=== PATIENT | female | born 1970 | race African-American/Black ===

== ENCOUNTER → 2018-10-21 | Day surgery (SDC) | payer OTHER ==
--- NOTE | 2018-10-21 14:53 | ULT ---
ULTRASOUND GUIDED RIGHT BREAST BIOPSY: DATE: 10/21/2018. PROVIDED CLINICAL HISTORY: A 3 o'clock right breast mass. FINDINGS: Correlation was made with outside imaging dating 10/03/2018. Limited sonographic interrogation of th e 3 o'clock position above right breast in the region of previously described right breast mass for w hich biopsy was recommended is again demonstrated. Informed consent was obtained from the patient. The patient was placed on the sonography table in the supine position and the area overlying the 3 o' clock right breast lesion was prepped and draped in the usual sterile manner. Soft tissues were infi ltrates with 1% buffered Lidocaine. Utilizing contiguous sonographic guidance, a 14 gauge core biops y device was utilized to obtain 5 core samples from the lesion. Subsequently, continuous sonographic guidance was utilized to place a biopsy site marker adjacent to the mass. No immediate complication s. Post biopsy mammograms demonstrate appropriate clip deployment. IMPRESSION: Technically successful ultrasound-guided right breast biopsy. Please correlate with histology result s to follow through. POS: OFF
== END ==
LOC: BICULT 12:18
PROVIDERS: ATTEND Specialist
PROC: 0HBT3ZX Excision of Right Breast, Percutaneous Approach, Diagnostic (ICD-10-PCS; principal; 2018-10-21)
DX: D24.1 Benign neoplasm of right breast (principal)
CPT/HCPCS: 19083; 88305; 88341; 88342

== ENCOUNTER 2018-11-11 06:23 | Outpatient (CLI) | payer OTHER ==
[2018-11-11 14:01] LABS: #Eosinphils 0.1 thou/uL (0.0-0.7); #Lymphocytes 2.2 thou/uL (1.20-3.40); #Monocytes 0.4 thou/uL (0.11-0.59); #Neutrophils 3.1 thou/uL (1.40-6.50); %Basophils 0.7 % (0.0-1.0); %Eosinophils 1.8 % (0.0-10.0); %Lymphocytes 37.7 % (21.0-51.0); %Monocytes 6.6 % (0.0-10.0); %Neutrophils 53.3 % (42.0-75.0); Hemoglobin 12.9 g/dL (12.0-16.0); Mean Corpuscular HGB CONC 34.6 g/dL (32.0-36.0); Mean Corpuscular Hemoglobin 32.2 pg (27.0-31.0); Mean Corpuscular Volume 93.1 fL (78.0-98.0); Platelet Count 365 thou/uL (130-400); RBC Distribution Width 11.7 % (11.5-14.5); White Blood Cell (WBC) Count 5.9 thou/uL (4.8-10.8)
[2018-11-11 14:34] LABS: Anion Gap 10 mmol/L (10-20); BUN (Urea Nitrogen) 10 mg/dL (7.0-18.7); Calc. Creatinine Clearance 0 mL/min (70-130); Calcium 9.6 mg/dL (7.8-10.44); Carbon Dioxide 28 mmol/L (22-29); Chloride 103 mmol/L (98-107); Estimated GFR-MDRD 75; Glucose 74 mg/dL (70-105); Potassium 3.3 mmol/L (3.5-5.1); Sodium 138 mmol/L (136-145)
== END 2018-11-11 06:24 | disposition home or self-care (01) ==
LOC: LABBT 06:23
PROVIDERS: ATTEND Specialist
DX: Z01.812 Encounter for preprocedural laboratory examination (principal); N63.10 Unspecified lump in the right breast, unspecified quadrant
CPT/HCPCS: 80048; 85025

== ENCOUNTER 2018-11-16 08:07 | Day surgery (SDC) | payer OTHER ==
--- NOTE | 2018-11-10 08:12 | HP ---
HISTORY OF PRESENT ILLNESS: Avelina Rios is a 48-year-old female followed by Dr. Virk. She presented to my office with an abnormal mammogram and underwent ultrasound-guided biopsy to medial right breast, 10/21/2018, pathology revealing papillary hyperplastic lesion although no dysplasia is noted. Excision was recommended to assure there is no malignancy or premalignancy. We will plan ultrasound guided needle localization, outpatient under general anesthesia. We have reassured the patient that this is more likely benign. Risks and benefits were discussed and she consented. MEDICATIONS: 1. Bupropion daily. 2. Nexium daily. 3. Fluoxetine 20 mg a day. 4. Hydrochlorothiazide 12.5 mg a day. 5. Valacyclovir daily. 6. Montelukast sodium daily. PAST MEDICAL HISTORY: Elevated cholesterol, depression, diabetes, and hypertension. PAST SURGICAL HISTORY: Lap pineda, hernia repair, PD catheter placement, fistula. REVIEW OF SYSTEMS: Noncontributory. SOCIAL HISTORY: Tobacco, none. Alcohol, none. Drugs, none. PHYSICAL EXAMINATION: VITAL SIGNS: 150 pounds, 5 foot 4 inches, 116/75, 80, and 98.1 degrees. HEAD, EARS, EYES, NOSE, AND THROAT: Unremarkable. LUNGS: Clear to auscultation. CARDIAC: Regular rate and rhythm without murmur or gallop. ABDOMEN: Soft and nontender. EXTREMITIES: Unremarkable. Axilla without masses. Left breast without palpable masses. Right breast reveals a medial mass. When I initially saw her today post biopsy, there is some ecchymosis and bruising. I cannot feel the small mass in the medial right breast. ASSESSMENT AND PLAN: Right breast mass most likely benign, but we will plan wider excision to assure under general anesthesia after needle localization. She understands the risks and benefits, and consents. Job ID: [id number]
[2018-11-11 11:39] VITALS: BMI 25.0
[2018-11-16] MEDS ORDERED: CEFAZOLIN 2 GM/50 ML BAG ONE (10:38)
[2018-11-16] MEDS ORDERED: Ketorolac Tromethamine 30 MG/ML VIAL ONE (10:38)
[2018-11-16] MEDS ORDERED: Bupivacaine/Epinephrine 0.25% 30 ML VIAL ONE (10:56)
[2018-11-16] MEDS ORDERED: Bupivacaine HCl 0.5%/Epinephrine 1:200,000/PF 30 ml Vial ONE (10:56)
[2018-11-16] MEDS ORDERED: Lidocaine 2% PF 5 ML VIAL ONE (10:56)
[2018-11-16] MEDS ORDERED: Fentanyl 100 MCG/2 ML VIAL ONE ×3 (11:03→12:29)
--- NOTE | 2018-11-16 13:05 | EKG ---
Test Reason : PREOP Blood Pressure : / mmHG Vent. Rate : 055 BPM Atrial Rate : 055 BPM P-R Int : 154 ms QRS Dur : 086 ms QT Int : 418 ms P-R-T Axes : 046 005 028 degrees QTc Int : 399 ms Sinus bradycardia Nonspecific T wave abnormality Abnormal ECG No previous ECGs available Confirmed by DR. Abbie MEYER ([id number]) on 11/16/2018 1:05:12 PM Referred By: BONNIE Confirmed By:DR. Abbie MEYER
[2018-11-16] MEDS ORDERED: HYDROcodone/Acetaminophen 5/325 mg Tablet ONE (13:58)
--- NOTE | 2018-11-16 15:04 | MMO ---
PRE-PROCEDURE DIAGNOSIS: Right breast 3 o'clock papillary lesion. Surgical excision is recommended. PROCEDURE: Ultrasound-guided needle localization of right breast masses at the 3 o'clock position. ANESTHESIA: Buffered Lidocaine 1% 4 mL. SURGEON: Noam Iqbal M.D. COMPLICATIONS: None. TECHNIQUE: Prior to the procedure, the risk and benefits of needle localization of the right breast masses at th e 3 o'clock position was explained to the patient and she consented for the procedure. Ultrasound was used again to identify the masses at the 3 o'clock position of the right breast. Lido krysten was used to anesthetized the skin and soft tissue surrounding the masses. A 3 cm [place] needle was then placed through both the masses. Once the needle was through both masses , the wire was deployed. This was then secured to the patient, and she was sent to day surgery for a ventral surgical excision. A specimen radiograph was performed, showing a clip within the biopsy specimen. There was extremely dense breast parenchyma, and the lesions that were localized with ultrasound could not be definitely seen. IMPRESSION: Status post needle localization of right breast masses at the 3 o'clock position. POS: [facility]
[2018-11-16] MEDS ORDERED: Lidocaine 1% PF 5 ML VIAL ONE (15:12)
[2018-11-16] MEDS ORDERED: PROPOFOL 200 MG/20 ML VIAL ONE (15:12)
[2018-11-16] MEDS ORDERED: ePHEDrine/0.9% NaCl/PF SYRINGE 50 mg/10 ml ONE (15:12)
[2018-11-16] MEDS ORDERED: Dexamethasone 20 MG/5 ML VIAL ONE (15:12)
[2018-11-16] MEDS ORDERED: Ondansetron PF 4 MG/2 ML Vial ONE (15:12)
[2018-11-16] MEDS ORDERED: Succinylcholine Chloride 20 MG/ML 10 ml SYRINGE FS ONE (15:12)
--- NOTE | 2018-11-16 17:48 | OP ---
DATE OF PROCEDURE: 11/16/2018 PREOPERATIVE DIAGNOSIS: Right breast medial indeterminate lesion by previous biopsy, now needs wide local excision of two adjacent lesions. ANESTHESIA: General, local 0.5% Marcaine with epinephrine 30 mL with 2% Xylocaine 10 mL, total volume used. Previous biopsy revealed papillary hyperplastic lesion without dysplasia. DESCRIPTION OF PROCEDURE: The patient was taken to the operating room, where after ultrasound-guided needle localization of this indeterminate hyperplastic lesion, the medial right breast incision was made in the medial right breast transversely after area was prepared with ChloraPrep and draped in routine fashion under general anesthesia. The localizing wire was brought into the incision and the wide excision of the localized abnormality excised from surrounding tissue submitted to mammography, where specimen mammography assured retrieval and then specimen was submitted to Pathology. Hemostasis was gained with cautery. Subcutaneous tissue was approximated with 3-0 Monocryl, skin with subdermal 4-0 Monocryl, and Haliimaile glue applied. Local anesthetic infiltrated about the skin and subcu tissue and breast tissue about the biopsy site and in the biopsy cavity. The patient tolerated the procedure well. Job ID: [id number]
== END 2018-11-16 16:32 | disposition home or self-care (01) ==
LOC: CANPRESDC → SDC 08:07 → EEVIPCON 11:00 → SDC 16:32
PROVIDERS: ATTEND Specialist
PROC: 0HBT0ZZ Excision of Right Breast, Open Approach (ICD-10-PCS; principal; 2018-11-16)
DX: D24.1 Benign neoplasm of right breast (principal); E11.9 Type 2 diabetes mellitus without complications; F32.9 Major depressive disorder, single episode, unspecified; E78.00 Pure hypercholesterolemia, unspecified; I10 Essential (primary) hypertension; Z79.899 Other long term (current) drug therapy
CPT/HCPCS: 19285; 76098; 88307; 93005; 93010; 96374; J0131; J0670; J1100; J1885; J2001; J2405; J2704; J3010

== ENCOUNTER 2020-07-29 14:39 | Outpatient (CLI) | payer OTHER ==
--- NOTE | 2020-07-29 16:40 | MMO ---
Bilateral MAMMO Bilat Screen [facility]. CLINICAL HISTORY: Patient is 49 years old and is seen for screening. The patient has the following family history of breast cancer: maternal aunt, malignant (generic). The patient has no personal history of cancer. The patient has a history of right Ultrasound Guided Core Biopsy in 2019 - papilloma, right Lumpectomy in 2018 - papilloma, right Cyst Aspiration in August, - benign and left Cyst Aspiration in December, - benign. VIEWS: The views performed were: bilateral craniocaudal with tomosynthesis and bilateral mediolateral oblique with tomosynthesis. FILMS COMPARED: The present examination has been compared to prior imaging studies performed at [facility] on 10/03/2018, and at [facility] on 01/07/2016 and 01/12/2017. This study has been interpreted with the assistance of computer-aided detection. MAMMOGRAM FINDINGS: The breasts are extremely dense, which may lower the sensitivity of mammography. Benign calcifications are noted bilaterally. There are no suspicious masses, suspicious calcifications, or new areas of architectural distortion. IMPRESSION: THERE IS NO MAMMOGRAPHIC EVIDENCE OF MALIGNANCY. A ROUTINE FOLLOW-UP MAMMOGRAM IN 1 YEAR IS RECOMMENDED. THE RESULTS OF THIS EXAM WERE SENT TO THE PATIENT. ACR BI-RADS Category 2 - Benign finding MAMMOGRAPHY NOTE: 1. A negative mammogram report should not delay a biopsy if a dominant of clinically suspicious mass is present. 2. Approximately 10% to 15% of breast cancers are not detected by mammography. 3. Adenosis and dense breasts may obscure an underlying neoplasm. Reported by: TASHA MEMBRENO MD Electonically Signed: [id number]
== END 2020-07-29 14:40 | disposition home or self-care (01) ==
LOC: BICMAMMO 14:39
PROVIDERS: ATTEND Physician Assistant
DX: Z12.31 Encounter for screening mammogram for malignant neoplasm of breast (principal); Z98.890 Other specified postprocedural states
CPT/HCPCS: 77063; 77067